=== PATIENT | male | born 2000 | race Caucasian/White ===

== ENCOUNTER 2025-02-13 12:16 | Emergency (ER) | payer BC, SELFPAY ==
[2025-02-13 12:28] VITALS: BP 126/80
[2025-02-13 13:03] LABS: % Basophils 0.3 % (0-2); % Eosinophils 0.2 % (0-6); % Immature Granulocytes 0.4 % (0-0.5); % Lymphocytes 9.3 % (20.5-51.1); % Monocytes 7.2 % (1.7-9.3); % Neutrophils 82.6 % (42.2-75.2); Absolute Basophils 0.1 10^3/uL (0-0.2); Absolute Immature Granulocytes 0.1 10^3/uL (0-0.05); Absolute Lymphocytes 1.7 10^3/uL (1.2-3.4); Absolute Monocytes 1.3 10^3/uL (0.1-0.6); Absolute Neutrophils 15.1 10^3/uL (1.4-6.5); Hematocrit 44.8 % (39.0-52.0); Hemoglobin 14.9 g/dL (13.0-18.0); Mean Corp Hgb Conc. 33.3 g/dL (33.0-37.0); Mean Corpuscular Hgb 29.6 pg (27.0-31.0); Mean Corpuscular Volume 88.9 fL (80.0-94.0); Mean Platelet Volume 10.1 fL (7.4-10.4); Nucleated Red Blood Cells % 0 % (-); Platelet Count 167 10^3/uL (130-400); Red Blood Cell Count 5.04 10^6/uL (4.70-6.10); Red Cell Dist. Width 13.5 % (11.5-14.5); White Blood Cell Count 18.4 10^3/uL (4.8-10.8)
[2025-02-13 13:29] LABS: ALT (SGPT) 22 U/L (0-50); AST (SGOT) 20 U/L (17-59); Albumin 4.3 g/dl (3.5-5.0); Alkaline Phosphatase 57 U/L (38-126); Blood Urea Nitrogen 11 mg/dl (9-20); Calcium 9.5 mg/dl (8.4-10.2); Carbon Dioxide 26 mmol/L (22-30); Chloride 107 mmol/L (98-107); Glucose 103 mg/dl (70-99); Potassium 4.1 mmol/L (3.5-5.1); Sodium 139 mmol/L (135-145); Total Bilirubin 0.8 mg/dl (0.2-1.3); Total Protein 6.9 g/dl (6.3-8.2); eGFR > 60.00
--- NOTE | 2025-02-13 14:12 | ED.GENMED ---
History of Present Illness
General
Chief Complaint: Cold/Flu/URI Symptoms
Source: patient
Exam Limitations: none
Time Seen by Provider: 02/13/25 14:01
Nursing documentation reviewed up to this point in time: agreed with
History of Present Illness
History of Present Illness:
Patient to ED with complaint of sorethroat, fever, body aches. Symptoms started 2 weeks ago while at school. He was seen at , neg strep and mono. He was placed on a course of amoxicillin anyway and a course of prednisone. After approx 5 days
on amoxicillin he developed a rash and antibiotic was stopped. Rash resolved yesterday. He finished the prednisone prior to the weekend and felt well until today when his symptoms returned. Initially had a fever but not today. Brought self to ED
for eval. Denies any abdomihnal pain, n/v/d. No SOB, cough.
Past History
Past History
ED Past Medical History: None
ED Past Surgical History: None
Social History
Tobacco: Non-smoker
Alcohol: Occasional
Drug: None
Review of Systems
Review of Systems
Allergies reviewed?: Yes
All Other Systems: ROS reviewed and negative except as documented in HPI and ROS
Constitutional: Reports no symptoms
EENT: Reports sore throat
Respiratory: Reports no symptoms
Cardiac: Reports no symptoms
ABD/GI: Reports no symptoms
: Reports no symptoms
Musculoskeletal: Reports other (bodyaches)
Skin: Reports no symptoms
Neurological: Reports no symptoms
Psychiatric: Reports no symptoms
Phy Exam
General Physical Exam
General Presentation: mild distress
General age: appears stated age
General Skin: warm and dry
General Habitus: normal
General Mental: alert
ENT Exam
ENT Exam: neck supple, pharyngeal erythema and swallowing well
Cardiovascular Exam
Cardiovascular Exam: regular rate/rhythm and no edema
Pulmonary Exam
Pulmonary Exam: lungs clear and no respiratory distress
Gastrointestinal Exam
Gastrointestinal Exam: non tender, soft, no organomegaly and non distended
Neurological Exam
Neurological Exam: alert, oriented x3, CN II-XII intact, no motor deficits, no sensory deficits and speech normal
Musculoskeletal Exam
Musculoskeletal Exam: full ROM and neuro vasc intact
Skin Exam
Skin Exam: normal color, warm/dry and no rash
Psychiatric Exam
Psychiatric Exam: normal mood/affect
Course
Orders/Labs/Results
Orders:
Orders
02/13/25 12:48
CMP [Comprehensive Metabolic Panel] Urgent
Complete Blood Count/With Diff Urgent
Monotest Urgent
Comment: ADD ON
02/13/25 14:13
Add On- LAB Urgent
Tests Added?: monotest
02/13/25 14:18
Rapid Strep Group A Urgent
[place] Source: Throat/Pharynx
Specimen Description:
Date Specimen was Collected: 02/13/25
Time Specimen was Collected: 14:12
02/13/25 16:24
Dexamethasone Pf [Decadron] 10 mg PO NOW STA
Abnormal Lab Results
02/13/25
12:48
WBC 18.4 H 10^3/uL
(4.8-10.8)
Abs Immat Gran (auto) 0.1 H 10^3/uL
(0-0.05)
Absolute Neuts (auto) 15.1 H 10^3/uL
(1.4-6.5)
Absolute Monos (auto) 1.3 H 10^3/uL
(0.1-0.6)
Neutrophils % 82.6 H %
(42.2-75.2)
Lymphocytes % 9.3 L %
(20.5-51.1)
Glucose 103 H mg/dl
(70-99)
02/13/25 12:48
02/13/25 12:48
Vital Signs
Initial and Last Documented VS:
Initial Vital Signs
Temp Pulse Resp BP Pulse Ox
99.1 F 104 16 126/80 98
02/13/25 12:28 02/13/25 12:28 02/13/25 12:28 02/13/25 12:28 02/13/25 12:28
Last Documented Vital Signs
Temp Pulse Resp BP Pulse Ox
99.1 F 95 16 121/63 98
02/13/25 12:28 02/13/25 15:55 02/13/25 15:55 02/13/25 15:55 02/13/25 15:55
*Critical Care Note
Total Time (30-74mins, 75-104mins- exclusive of procedures): Not Applicable
Update Note
Update Note:
Patient to ED wtih complaint of sorethroat and body aches for the past 2 weeks. Initial Love and Strep were neg, repeated today and remain neg. WBC 18 noted however he jusst completed a course of prednisone. ALl other labs normal. He remains
afebrile. NO difficulty breathing or swallowing. He will be discharge home, will follow up with PCP He was given instructions on s/s to return to ED and he is agreeable to plan.
ED Attending Note
-
Portions of this chart may have been created with voice recognition software.� Occasional wrong word or��sound alike� substitutions may have occurred due to the inherent limitations of voice recognition software.
Discharge Plan
Departure
Patient Disposition: Home (Routine Discharge)
Date of Disposition: 02/13/25
Time of Disposition: 16:24
Patient with high blood pressure during this ER visit?: No
Condition: Good
Covid-19: Not Applicable
Discharge Problem:
Pharyngitis
Instructions: Sore Throat - Adult
Referrals:
UNKNOWN - PT DOES,NOT KNOW [Family Provider] -
Activity Restrictions/Additional Instructions:
As we discussed, your monotest and rapid strep are both negative. Cultue results of your throat will not be available for 1-2 days. We will hold off on antibiotics pending culture results. WBC was elevated on your labwork but I feel this is due to
your recent steroid use. All other lab results are normal. Please continue tylenol or ibuprofen for any discomfort and follow up with your family doctor in 1-2 days. Return to the emergency department immediately for any difficulty breathing or
swallowing.
Interventions
Interventions:
*Risk Screen - Suicide Last Done: 02/13/25 12:28
*General Assessment Last Done: 02/13/25 15:57
*Neglect/Abuse Screening Last Done: 02/13/25 12:28
*ED- Fall Risk Assessment Last Done: 02/13/25 15:57
*ED COVID-19 Vaccine History Last Done: 02/13/25 15:57
ED- Pulmonary Assessment Last Done: 02/13/25 15:00
Discharge Date and Time
Print Language: GREEN[place]
[2025-02-13 15:55] VITALS: BP 121/63
[2025-02-13 16:10] LABS: Monotest Negative (Negative)
[2025-02-13] MEDS: DECADRON 10 MG PO (16:39)
== END 2025-02-13 16:49 | disposition home or self-care (01) ==
LOC: EMR 12:16
PROVIDERS: Emergency Medicine; EMERGENCY PHYSICIAN Student in an Organized Health Care Education/Training Program
DX: J02.9 Acute pharyngitis, unspecified (principal)
CPT/HCPCS: 99283; 80053; 85025; 86308; 87070; 87880

== ENCOUNTER 2025-04-20 06:14 | Day surgery (SDC) | payer BC, SELFPAY ==
[2025-04-20 11:08] VITALS: BP 129/84
[2025-04-20 11:10] VITALS: BMI 23.5
[2025-04-20] MEDS: NORMOSOL-R/PLASMALYTE-A 1000 IV (11:15)
[2025-04-20 13:00] VITALS: BP 121/75
[2025-04-20 13:15] VITALS: BP 118/79
[2025-04-20 13:45] VITALS: BP 118/73
[2025-04-20 14:00] VITALS: BP 117/68
[2025-04-20 14:20] VITALS: BP 116/67
== END 2025-04-20 14:38 | disposition home or self-care (01) ==
LOC: SDS 06:14
PROVIDERS: ATTENDING PHYSICIAN Otolaryngology
DX: J35.1 Hypertrophy of tonsils (principal)
CPT/HCPCS: 42826; 88304